=== PATIENT | female | born 1955 | race Caucasian/White ===

== ENCOUNTER → 2016-04-26 | Outpatient (CLI) | payer OTHER ==
--- NOTE | 2016-04-26 09:14 | US ---
Sonography Limited to the Left Upper Quadrant of the Abdomen CLINICAL HISTORY: 60-year-old female who presents for follow-up of a 1.7cm splenic cyst on the later al pole of the spleen seen on prior CT imaging. ICD 10 Diagnostic Code: D73.4. TECHNIQUE: A curvilinear 5 MHz transducer was used to sonographically evaluate the left upper quadra nt of the abdomen. Color Doppler was used. A cine clip was acquired through the spleen. COMPARISON STUDY: Contrast-enhanced CT scan of the abdomen, dated 09/21/2015. FINDINGS: The spleen is normal in size and homogeneous in echotexture, measuring 10.7 x 10.3 x 5.9 c m. A previously seen exophytic well-circumscribed 17 mm cystic lesion along the lateral upper portio n of the spleen is not sonographically visualized. There is normal vasculature at the splenic hilum. The upper pole of the left kidney appears normal. There is no ascites or left pleural effusion. IMPRESSION: Normal sonographic evaluation of the spleen.
== END ==
LOC: CIMAGING 08:34
PROVIDERS: ATTEND Internal Medicine
DX: Z03.89 Encounter for observation for other suspected diseases and conditions ruled out (principal)
CPT/HCPCS: 76705-PO

== ENCOUNTER → 2017-01-12 | Outpatient (CLI) | payer OTHER | LOC: CIMAGING 14:50 | PROVIDERS: ATTEND Internal Medicine | DX: Z12.31 Encounter for screening mammogram for malignant neoplasm of breast (principal) | CPT/HCPCS: G0202 ==

== ENCOUNTER → 2017-04-18 | Outpatient (CLI) | payer OTHER | LOC: FCPNEURO 09:21 | PROVIDERS: ATTEND Student in an Organized Health Care Education/Training Program | DX: G47.33 Obstructive sleep apnea (adult) (pediatric) (principal) ==

== ENCOUNTER → 2017-05-18 | Outpatient (CLI) | payer OTHER ==
[~2017-05-18] MED LIST: GADOBUTROL 10 ML VIAL IVP ONE
== END ==
LOC: FIMAGING 10:13
PROVIDERS: ATTEND Internal Medicine Gastroenterology
DX: Z13.89 Encounter for screening for other disorder (principal)
CPT/HCPCS: A9585

== ENCOUNTER → 2017-06-12 | Outpatient (CLI) | payer OTHER | LOC: FIMAGING 11:02 | PROVIDERS: ATTEND Obstetrics & Gynecology | DX: Z13.820 Encounter for screening for osteoporosis (principal); M85.89 Other specified disorders of bone density and structure, multiple sites ==

== ENCOUNTER → 2018-01-16 | Outpatient (CLI) | payer OTHER | LOC: CIMAGING 14:23 | PROVIDERS: ATTEND Family Medicine | DX: Z12.31 Encounter for screening mammogram for malignant neoplasm of breast (principal) ==

== ENCOUNTER 2018-01-20 19:58 | Emergency (ER) | payer OTHER ==
[2018-01-20] MEDS ORDERED: ACETAMINOPHEN 500 MG TAB PO ONE (20:45)
--- NOTE | 2018-01-20 21:16 | EDPHY ---
H & P Stated Complaint: HIGH BP, PEREZ several days. Time Seen by Provider: 01/20/18 20:08 HPI/ROS: CHIEF COMPLAINT: Headache and high blood pressure History by patient HISTORY OF PRESENT ILLNESS: 62-year-old woman with a history of hypertension and autonomic dysreflexia related to chronic constipation presents complaining of 4 days of persistent headache and blood pressure elevated to 163/104 at home today. Patient states that over the past several days she has been waking at night with a headache which can sometimes be fairly severe. This seems to persist throughout the day but gets worse at night. It is not associated any nausea, vomiting, photophobia, phonophobia, focal numbness or weakness or vision changes. The headache is worse when she is lying down and better when she is up. She has taken ibuprofen with minimal relief. Patient has a remote history of migraines and this is not like her prior migraines. Today she thought the headache might be related to her autonomic dysreflexia which typically causes a vibrating discomfort in her abdomen and chest but sometimes has some headache with it so she took her blood pressure and found it high. She called the advice nurse who recommended she come into the ER because of her headache and high blood pressure. She does note that about a week or so ago her constipation got worse because she tried to change her laxative regimen and this is the typical trigger for her arm on the dysreflexia. She has also been having the nighttime symptoms of the abdominal chest vibration. The she was put on gabapentin by her neurologist 9 months ago which had helped for a while but over the past few months does not seem to be helping anymore. There has been no recent change in her blood pressure medications or other medications. She denies any change in diet or [id number] meds. She has no prior history of venous thromboembolic disease. There is no family history of VTE. Patient states she has had an extensive cardiac workup in the last 2 years including a stress test and Holter monitor because sometimes the vibration says she feels in her abdomen related to her autonomic dysreflexia go into her chest. These were all negative per the patient.. REVIEW OF SYSTEMS: As in HPI, and all other systems reviewed and are negative Source: Patient - Personal History Current Tetanus/Diphtheria Vaccine: Yes Current Tetanus Diphtheria and Acellular Pertussis (TDAP): Yes Tetanus Vaccine Date: 2017 - Medical/Surgical History Hx Asthma: No Hx Chronic Respiratory Disease: No Hx Diabetes: No Hx Cardiac Disease: No Hx Renal Disease: No Hx Cirrhosis: No Hx Alcoholism: No Hx HIV/AIDS: No Hx Splenectomy or Spleen Trauma: No Other PMH: high cholesterol, HTN, Dysreflexia, R Rotator cuff, breast neg biopsy. - Social History Smoking Status: Never smoked - Physical Exam Exam: General Appearance: Alert, nontoxic-appearing, pleasant. Head: normocephalic, atraumatic Eyes: Pupils equal and round, reactive to light, no pallor or injection. Extraocular movements intact Mouth: Mucous membranes moist. Neck: Full range of motion, no meningismus Respiratory: Normal, effort, lungs are clear to auscultation. No wheezes, rales or rhonchi. Cardiovascular: Regular rate and rhythm. S1, S2, no murmurs, gallops or rubs appreciated Gastrointestinal: Abdomen is soft and nontender, no masses, bowel sounds normal. Back: No CVA tenderness, no bony tenderness Neurological: Awake, alert and oriented x 3, cranial nerves 2 through 12 intact , no pronator drift, normal gait, heel to orellana intact, [id number] intact, DTRs 2+ and equal bilaterally, sensation equal bilaterally Skin: Warm and dry, no rashes. Musculoskeletal: No deformities or tenderness. Extremities: full range of motion, no edema, DP2+ bilat Psychiatric: Patient has normal affect, there is no agitation. Constitutional: Initial Vital Signs Temperature (C) 36.7 C 01/20/18 20:09 Heart Rate 68 01/20/18 20:09 Respiratory Rate 16 01/20/18 20:09 Blood Pressure 168/84 H 01/20/18 20:09 O2 Sat (%) 96 01/20/18 20:09 O2 Delivery Mode Room Air Allergies/Adverse Reactions: No Allergies [NKDA] Allergy (Verified 10/07/15 21:29) BANDAIDS Allergy (Mild, Uncoded 05/05/14 20:31) Rash Home Medications: Medication Instructions Recorded Hrt Base 10/07/15 Hydrochlorothiazide 10/07/15 Lipitor 10/07/15 Losartan Potassium 10/07/15 Gabapentin 01/20/18 Medical Decision Making - Diagnostics Imaging Results: Imaging Impressions Head CT 01/20/18 21:09 Impression: 1. Negative for hemorrhage or mass lesion. 2. If symptomatology persists, MRI could be considered for further evaluation.. Results called and discussed with Irma Kramer MD on 01/20/2018 at 21:29. Imaging: Discussed imaging studies w/ parquetry floor layer Radiologist ED Course/Re-evaluation: 62-year-old woman presents to the emergency department with elevated blood pressure and persistent nocturnal, postural headaches but with normal neurologic exam. To rule out mass lesion or bleed a Head CT was obtained which was read as normal for age by the radiologist. Patient was given acetaminophen for her headache with some improvement. There is no evidence of any acute hypertensive emergency with end-organ damage. Given that the patient had some constipation and the headache, elevated blood pressure and abdomen symptoms are similar to her prior episodes related to her autonomic dysreflexia, I suspect this is what is going on again. I recommend she follow up with her neurologist and her primary care physician to discuss but the blood pressure and headaches. Patient understands and is agreeable to this plan. Patient did request Valium to help her sleep tonight because she has not slept in loss for his because of her headache. I will send her home with a dose of Ambien. - Data Points Medications Given: Discontinued Medications Acetaminophen (Tylenol) 1,000 mg PO EDNOW ONE Stop: 01/20/18 20:46 Last Admin: 01/20/18 20:49 Dose: 1,000 mg Departure - Departure Disposition: Home, Routine, Self-Care Clinical Impression: Elevated blood pressure reading Headache Qualifiers: Headache type: unspecified Headache chronicity pattern: acute headache Intractability: not intractable Qualified Code(s): R51 - Headache Condition: Good Instructions: Zolpidem (By mouth), Acute Headache (ED), Hypertension (ED) Additional Instructions: You were seen by Dr. Irma Kramer today. You had a normal head CT tonight. There are no signs of hypertensive emergency. Continue your blood pressure medications as prescribed. Please follow up with her primary care physician to discuss your elevated blood pressure readings and need for adjustment of her medications. You may take acetaminophen 1000 mg 4 times a day as needed for headache. Please follow up with your neurologist to discuss the need for any further evaluation for your headaches. You may take the Ambien at least 7 hr before you plan to get up tomorrow morning to help her sleep. Return for any worsening or new concerns. Referrals: Odalis Rodriguez MD [Primary Care Provider] - As per Instructions
[2018-01-20] MEDS ORDERED: ZOLPIDEM TARTRATE 5 MG TAB PO ONE (21:38)
[2018-01-20 22:11] VITALS: BP 142/62
== END 2018-01-20 22:00 | disposition home or self-care (01) ==
LOC: CED 19:58
DX: I10 Essential (primary) hypertension (principal); R51 Headache; E78.00 Pure hypercholesterolemia, unspecified
CPT/HCPCS: 70450-PO

== ENCOUNTER → 2018-02-26 | Outpatient (CLI) | payer OTHER | LOC: FIMAGING 10:00 | PROVIDERS: ATTEND Family Medicine | DX: R91.8 Other nonspecific abnormal finding of lung field (principal) ==